=== PATIENT | female | born 1960 | race Caucasian/White ===

== ENCOUNTER → 2020-03-22 | Outpatient (CLI) | payer OTHER, BC ==
[~2020-03-22] VITALS: Ht 162.6 cm; Wt 47.6 kg
[~2020-03-22] MED LIST: ABILIFY 2 MG2 M1 PO; ALLERGY RELIEF180 MG PO; BACLOFEN20 MG PO; BAYER BACK & B1 EACH PO; CBD OIL; CELEBREX 200 M200 M1 PO; DERMACINRX5000 UNIT PO; DEXILANT60 MG PO; FLONASE 0.05%50 MCG NARES; HYDROCODON-ACE1 EAC8 PO; OXTELLAR XR150 MG PO; PRAMIPEXOLE DI0.5 MG PO; PROBIOTIC1 EAC7 PO; PROVIGIL 200 M200 MG PO; TOPAMAX100 MG PO; TRAZODONE HCL100 MG PO; TURMERIC500 M2 PO; VALACYCLOVIR1000 MG PO; VALIUM5 MG PO; VENLAFAXINE HCL75 M1 PO
[2020-03-22 14:14] VITALS: BP 137/90
--- NOTE | 2020-03-22 14:45 | NUR ---
Pain Clinic Assessment: 1. History of Osteoarthritis: YES DOESNT KNOW WHERE History of Rheumatoid Arthritis: Not Applicable 2. Height: 5 ft. 4 in. 162.6 cm. Weight: 105.0 lb. oz. 47.628 kg. Patient's BMI: 18.0 3. Vital Signs: BP: 137/90 Pulse: 81 Resp: 14 Temp: 02 Sat: 100 ECG Mon: 4. Pain Intensity: 7 5. Fall Risk: Dizziness: Y Needs help standing or walking: N Fallen in the last 3 months: Y Fall risk comments: 6. Patient on Blood Thinner: None 7. History of Hypertension: N 8. Opioid Therapy greater than 6 weeks: Y Opiate Contract Signed: 9. Risk Assessment Tool Provided: HIGH 9 10. Functional Assessment Tool: 53/70 11. Recreational Drug Use: Never Drug Type: Tobacco Use: Current Every Day Smoker Tobacco Type: Cigarettes Amount or Packs/day: 3/4 PACK How Many Years: 40 Alcohol Use: Yes Frequency: Weekly Quant: 5-7
--- NOTE | 2020-03-23 12:09 | HPC ---
[facility] [place] [address] PAIN MANAGEMENT CONSULTATION Name: CONSUELO MUNGUIA Room #: REG DAKOTAH Pena#: [id number] Admission: 03/22/20 Attend Phys: Gopal Cid DO Discharge: Date of : 60 Report #: [id number] THIS REPORT FOR: cc: FAM - No family physician/PCP FAM - No family physician/PCP Gopal Cid DO ~ DATE OF SERVICE: 03/22/2020 REFERRING PHYSICIAN: Dr. Byron Elliott CHIEF COMPLAINT: Low back pain, right lower extremity pain. HISTORY OF PRESENT ILLNESS: As you know, the patient is a very unfortunate 59-year-old female with longstanding history of back pain issues as well as cervical spine issues. She has undergone epidural injections under fluoroscopic guidance at a local pain service. Unfortunately, these epidural injections began to lose efficacy. The patient reports the past 2 epidural injections gave minimal benefit. She was advised that they would not recommend continuing epidural injections. Her typical relief of symptoms was up to 3 months at a time. Due to lack of improvement with those 2 epidural injections, the patient was referred on to Neurosurgery. The patient saw Dr. Byron Elliott for evaluation from a surgical standpoint. Imaging was provided at that visit, which showed minimal changes at the L4-L5 level. It was determined at that visit that the patient should undergo a L4-L5 disc block to determine if the symptoms she is experiencing are related to this level and that surgery would be performed or whether or not her pain is generated from another source and needs to be further evaluated. The patient was then subsequently referred to our clinic to L4-L5 disc block under fluoroscopic guidance. The patient indicates today pain is continuous, steady and constant. She describes the pain as burning, shooting, aching. She places current pain score at 7/10, daily average is 7-8/10, worst pain has been is 8/10. The patient states pain is exacerbated with "sitting too much," "carrying anything in front of her" and standing and walking. Pain is improved with lying down massage and pain medications. The patient has been referred to our service to discuss scheduling a L4-L5 disc block. PAST MEDICAL HISTORY: 1. Osteoarthritis. 2. Irritable bowel syndrome. 3. Depression. 4. Multiple sclerosis. 5. Ankylosing spondylitis. 6. History of seizure activity. 7. Mitral valve prolapse. 8. [place] [address] PAIN MANAGEMENT CONSULTATION Name: CONSUELO MUNGUIA Room #: REG [facility] Becky#: [id number] Admission: 03/22/20 Attend Phys: Gopal Cid DO Discharge: Date of : 60 Report #: [id number] 9. Anxiety disorder. 10. Seasonal allergies. PAST SURGICAL HISTORY: 1. Tonsillectomy. 2. Cholecystectomy with appendectomy. 3. Herniorrhaphy. 4. Ganglion cyst removal. 5. Tubal ligation. 6. Excision of breast lump. SOCIAL HISTORY: The patient is a current smoker, reporting 3/4 of a pack of tobacco per day. This has been consistent for over 40 years. She admits to 1 alcohol beverage per day. She is currently on disability. She has been on disability for 18 years. She is receiving disability income. She is not in litigation in regards to pain. She is accompanied by a family friend present in room today. REVIEW OF SYSTEMS: Positive for weight change, decrease in appetite, fatigue and weakness, history of optic neuritis with vision changes, hearing loss with tinnitus, frequent diarrhea, interspersed with constipation, abdominal pain, frequent urination, nocturia, varicose veins, lightheadedness and dizziness, numbness and tingling sensations, tremors, memory loss with confusion, nervousness, depression, insomnia, heat and cold intolerance. All other review of systems negative per 12-point review of systems other than those listed in history of present illness. Pain impact score 53 of 70 indicating severe interference of daily activities secondary to pain. ALLERGIES: No known drug allergies. CURRENT MEDICATIONS: Leonidas Back and Body 1 tab per day, probiotic 1 tab per day, CBD oil 3 times a day, turmeric extract 500 mg once a day, fexofenadine 180 mg once a day, fluticasone 1 spray each nostril per day, trazodone 150 mg p.o. at bedtime, Provigil 100 mg twice a day, hydrocodone/acetaminophen 7.5/325 one tab p.o. q. 6 hours p.r.n. for pain, diazepam 5 mg t.i.d. p.r.n. anxiety, pramipexole 0.5 mg p.o. at bedtime, oxcarbazepine 150 mg b.i.d., Abilify 2 mg once a day, Dexilant 60 mg once a day, valacyclovir 1000 mg once a day, celecoxib 200 mg once a day, baclofen 20 mg 4 times a day, Topamax 100 mg twice a day, venlafaxine 75 mg 3 tabs p.o. q.a.m. IMAGING: MRI of the lumbar spine obtained on 10/27/2019 shows L1-L2, L2-L3, L3-L4 unremarkable. L4-L5 shows small right paracentral disk protrusion with associated annular fissure. No central canal stenosis, mild bilateral lateral recess narrowing, mild right foraminal narrowing, no left neural foraminal [facility] [address] [place] [address] PAIN MANAGEMENT CONSULTATION Name: CONSUELO MUNGUIA Room #: REG [facility].#: [id number] Admission: 03/22/20 Attend Phys: Gopal Cid DO Discharge: Date of : 60 Report #: [id number] narrowing. Findings are similar to prior MRI dated 06/11/2019. Disk protrusion is actually decreased in size from 09/26/2017. L5-S1 is unremarkable. PQRS: The patient has known arthritic changes of the cervical spine, shoulders, lumbar spine, hips and knees. No rheumatoid arthritis. She is placing pain intensity is 7/10. She is not a fall risk, but has had a fall in last 3 months, apparently tripped over objects at home. This has been rectified and the area has been cleared. She is not on blood thinners nor she is treated for hypertension. She is on chronic opioids and has an extremely high opioid addiction potential based on our assessment tool. She is scoring 9.5 out of 10. Pain impact score 53/70, severe interference of daily activities secondary to pain. PHYSICAL EXAMINATION: VITAL SIGNS: Blood pressure 137/90, pulse 81, respiratory rate 14 and unlabored. The patient is 100% on room air. Height 5 feet 4 inches tall, weight 105 pounds, BMI calculated 18. GENERAL: Well-developed, thin, 59-year-old female, appears older than stated age. She is placing current pain score at around 7/10. HEENT: Normocephalic, atraumatic. Pupils are round and responsive. Extraocular muscles are intact. The patient is wearing a mask in compliance with COVID-19 regulations. LUNGS: Appear clear. No wheeze, rhonchi, no rales. CARDIOVASCULAR: Regular. No appreciable gallop, no rub. ABDOMEN: Soft, nontender. EXTREMITIES: Show no clubbing, no appreciable cyanosis or edema. MUSCULOSKELETAL: Motor strength is 5/5 in the upper extremities, 5/5 in the lower extremities except for the extensor hallucis longus bilaterally, which presents is mildly reduced to approximately 4.5 over 5. She is intact to light touch from L1 through S2 dermatomes. Deep tendon reflexes are 2+/4 bilaterally at the Achilles. There are absent patellar reflexes. Muscle bulk and tone is symmetrical in comparing lower extremities. Seated straight leg raising negative. Supine straight leg raising is negative. Татьяна's test is negative. Modified Gaenslen's positive for axial low back pain. Ankle clonus negative. Babinski is negative. The patient is able to toe walk and heel walk without complications. ASSESSMENT: 1. Chronic low back pain. 2. Mild displacement of the anterior vertebral lumbar disk. 3. Mild neural foraminal stenosis. 4. Mild lateral recess stenosis. 5. Chronic intractable pain. PLAN: 1. The patient has been referred to our service by her neurosurgeon, [place] [address] PAIN MANAGEMENT CONSULTATION Name: CONSUELO MUNGUIA Room #: REG DAKOTAH Pena#: [id number] Admission: 03/22/20 Attend Phys: Gopal Cid DO Discharge: Date of : 60 Report #: [id number] Earl to be evaluated to undergo an L4-L5 disc block to help with diagnostic evaluation. The patient has mild changes at the L4-L5 level with the remainder of the lumbar spine is normal. There is concern that her symptoms may be related to this L4-L5 disk and that the presentation on imaging is not sufficient to provide the information necessary to determine if surgical options would be beneficial. We have been requested by the neurosurgeon to perform a L4-L5 disc block to determine if her symptoms would improve with this type of procedure. This would indicate that if she does see improvement that surgery at the level should improve overall pain. The patient was sent to discuss this block today. 2. The patient and I did discuss the disc block today. At present, her pain is "fairly well controlled." She states she is having pain from other areas including her cervical dystonia and would not be able to tell the difference between her typical back pain and the symptoms she is experiencing at present. We have agreed to see the patient back tomorrow after she has had a chance to go about the activities that exacerbate her chronic back pain including climbing stairs and carrying objects. The patient will perform all these exercises prior to coming to our clinic so that her typical lumbar spine pain will be present. This will help determine whether or not the disc block is going to be successful. The patient is agreeable with plan. We have tentatively set the appointment for tomorrow at approximately 1 o'clock. She will be participating in all these activities that exacerbate her symptoms, so that when the block is completed if her symptoms are improved, then she can determine whether or not it will be beneficial move forward with surgery. 3. No medication changes are offered at today's visit. The patient will continue current medical therapy as prior prescribed. 4. We plan to see the patient back in followup visit tomorrow to undergo an L4-L5 disc block under fluoroscopic guidance. 5. We wish to thank Dr. Byron Elliott for the opportunity to see this patient in consultation. We will keep you apprised of her response to treatment as we address this L4-L5 disk level with the requested disc block. Again, we wish to thank you for the opportunity to see this patient in consultation. <ELECTRONICALLY SIGNED> By: Gopal Cid DO 03/23/20 1209 [id number] Gopal Cid DO /nt
== END ==
LOC: PAIN 06:58
PROVIDERS: ATTEND Anesthesiology Pain Medicine
DX: G89.29 Other chronic pain (principal); M51.26 Other intervertebral disc displacement, lumbar region; M48.00 Spinal stenosis, site unspecified; M19.90 Unspecified osteoarthritis, unspecified site; K58.9 Irritable bowel syndrome, unspecified; G35 Multiple sclerosis; Z78.0 Asymptomatic menopausal state; Z68.1 Body mass index [BMI] 19.9 or less, adult; Z90.49 Acquired absence of other specified parts of digestive tract; Z98.51 Tubal ligation status; Z79.891 Long term (current) use of opiate analgesic; Z79.899 Other long term (current) drug therapy

== ENCOUNTER → 2020-03-23 | Outpatient (CLI) | payer OTHER, BC ==
[~2020-03-23] VITALS: Ht 162.6 cm; Wt 49.2 kg
[2020-03-23 12:56] VITALS: BP 129/79
--- NOTE | 2020-03-23 13:04 | NUR ---
Pain Clinic Assessment: 1. History of Osteoarthritis: YES DOESNT KNOW WHERE History of Rheumatoid Arthritis: Not Applicable 2. Height: 5 ft. 4 in. 162.6 cm. Weight: 108.4 lb. oz. 49.170 kg. Patient's BMI: 18.6 3. Vital Signs: BP: 129/79 Pulse: 90 Resp: 16 Temp: 02 Sat: 100 ECG Mon: 4. Pain Intensity: 5 5. Fall Risk: Dizziness: N Needs help standing or walking: N Fallen in the last 3 months: N Fall risk comments: 6. Patient on Blood Thinner: None 7. History of Hypertension: N 8. Opioid Therapy greater than 6 weeks: Y Opiate Contract Signed: 9. Risk Assessment Tool Provided: HIGH 9 10. Functional Assessment Tool: 53/70 11. Recreational Drug Use: Never Drug Type: Tobacco Use: Current Every Day Smoker Tobacco Type: Amount or Packs/day: 3/4 OF PACK How Many Years: Alcohol Use: Yes Frequency: Special Occasions Quant: 2
--- NOTE | 2020-03-29 08:02 | HPC ---
[facility] [place] [address] PAIN MANAGEMENT CONSULTATION Name: CONSUELO MUNGUIA Room #: REG DAKOTAH Pena#: [id number] Admission: 03/23/20 Attend Phys: Gopal Cid DO Discharge: Date of : 60 Report #: [id number] THIS REPORT FOR: cc: FAM - No family physician/PCP FAM - No family physician/PCP Gopal Cid DO ~ DATE OF SERVICE: 03/23/2020 CHIEF COMPLAINT: Low back pain, right lower extremity pain. HISTORY OF PRESENT ILLNESS: As you know, the patient is a very unfortunate 59-year-old female with longstanding history of low back pain and cervical issues. She has been referred to our service to undergo a L4-L5 discoblock in hopes of determining if her symptoms are related to the findings at the L4-L5 level. The patient has been referred by her neurosurgeon to undergo this procedure. She typically follows with Dr. Baltazar Urias, her pain management physician, but according to the patient, Dr. Urias does not provide discoblocks and she was subsequently referred to our clinic. We saw the patient yesterday, obtain authorizations to have the patient undergo the procedure, but also have the patient attempt to exacerbate her symptoms as much as possible prior to coming into the clinic as she was unable to determine if she could tell a difference between her baseline pain and a new pain that she has been experiencing. She returns today having exacerbated her typical low back pain with activities in preparation for L4-L5 discoblock under fluoroscopic guidance. The patient reports pain today at a level of 5/10. ALLERGIES: No known drug allergies. CURRENT MEDICATIONS: See chart. SOCIAL HISTORY: Unchanged from yesterday's evaluation. She is a current smoker, reporting 3/4 of pack tobacco per day consistent for over 40 years. Admits to 1 alcohol beverage per day. She is on disability accompanied with a friend who is present in room today. IMAGING: There is no new imaging available. PQRS: The patient has known arthritic changes of the cervical spine, bilateral shoulders, bilateral lumbar spine, hips and knees. No rheumatoid arthritis. She is placing current pain score today 5/10, not a fall risk, has not had a fall in last 3 months. She is not on blood thinners, nor is she treated for hypertension. She is on chronic opioids with extremely high opioid addiction potential based on our assessment tool. Pain impact remains at 53 of 70. PHYSICAL EXAMINATION: VITAL SIGNS: Blood pressure 129/79, pulse 90, respiratory rate [address] [address] PAIN MANAGEMENT CONSULTATION Name: CONSUELO MUNGUIA Room #: REG [facility].#: [id number] Admission: 03/23/20 Attend Phys: Gopal Cid DO Discharge: Date of : 60 Report #: [id number] unlabored. The patient is 100% on room air. Height 5 feet 4 inches tall, weight 108.4 pounds, BMI calculated 18.6. GENERAL: Well-developed, thin, 59-year-old female, appears older than stated age, placing pain today 5/10. HEENT: Normocephalic, atraumatic. Pupils are responsive. EXTREMITIES: Show no clubbing, no cyanosis, and no edema. MUSCULOSKELETAL: Motor strength remains symmetrical again today 5/5 except for the extensor hallucis longus bilaterally. She is intact to light touch from L1 through S2 dermatomes. Seated straight leg raising negative. Supine straight leg raising negative. Татьяна's test is negative. ASSESSMENT: 1. Chronic low back pain. 2. Mild displacement of lumbar intervertebral disk. 3. Mild neural foraminal stenosis. 4. Mild lateral recess stenosis. 5. Chronic intractable pain. PLAN: 1. The patient returns today in followup visit in preparation to undergo an L4-L5 discoblock per the request of her neurosurgeon. The patient has spent the morning attempting to exacerbate her chronic low back pain in preparation for today's procedure. The patient returns with pain level of 5/10. She has been advised of the risks and the benefits of a L4-L5 discoblock. These risks in Blue include but are not necessarily limited to bleeding, bruising, infection, worsening pain, no relief of pain, also risk of temporary or permanent muscle weakness, temporary or permanent nerve damage, possible paralysis and . The patient states understood and wished to proceed. 2. No medication changes made at today's visit. The patient will continue current medical therapy as prior prescribed. 3. We will be returning the patient's care to her neurosurgeon for further evaluation. I am pleased to advise the patient and her referring surgeon. We had no difficulty obtaining the discoblock. I have sent the patient with imaging from that discoblock for your review. The patient tolerated the procedure well. She did have pain provocation concordant with her current symptoms with the injection of our medications. I did not see any extravasation of dye during the procedure. Imaging was sent with the patient for your evaluation. We wish to thank you for the opportunity to see the patient in consultation. We will be returning her care to your capable services. DESCRIPTION OF PROCEDURE: L4-L5 discoblock under fluoroscopic guidance. After obtaining written consent, the patient was taken back to fluoroscopy suite, placed in prone position with pillow under abdomen to decrease lumbar lordosis. Skin overlying the lumbosacral area was then prepped and draped in aseptic fashion. A 27-gauge 1-1/4 inch needle was then used to anesthetize skin [address] [address] PAIN MANAGEMENT CONSULTATION Name: EZRACONSUELO Room #: REG DAKOTAH [facility].#: [id number] Admission: 03/23/20 Attend Phys: Gopal Cid DO Discharge: Date of : 60 Report #: [id number] and subcutaneous tissue overlying the target site of injection. A 22-gauge 5-inch Chiba needle was advanced under fluoroscopic guidance towards the L4-L5 disk. This was done in small increments to confirm needle position as we approached the L4-L5 disk. Needle passed a superior and lateral to the superior articular process of L5 entering the disk laterally and was then advanced medially without difficulty. Once into the disk, aspiration was noted to be negative for heme, 1 mL of Omnipaque was injected demonstrating an excellent discogram. After negative aspiration for heme, 3 mL of bupivacaine 0.5% was injected slowly. There was pain provocation with this injection concordant with the patient's typical pain. The injection went without complications. The needle was retracted and flushed with 1 mL of 1% lidocaine. Needle removed and a sterile bandage was placed over injection site. The patient was able to move all 4 extremities purposefully after procedure. The patient tolerated procedure well, carefully escorted to recovery room in stable condition. No apparent complications. After meeting discharge criteria, the patient discharged home. <ELECTRONICALLY SIGNED> By: Gopal Cid DO 03/29/20 0802 [id number] 1743 Gopal Cid DO /nt
== END | disposition home or self-care (01) ==
LOC: PAIN 06:56
PROVIDERS: ATTEND Anesthesiology Pain Medicine
DX: M51.16 Intervertebral disc disorders with radiculopathy, lumbar region (principal); M48.061 Spinal stenosis, lumbar region without neurogenic claudication; G89.29 Other chronic pain; M19.90 Unspecified osteoarthritis, unspecified site; F17.210 Nicotine dependence, cigarettes, uncomplicated; Z98.890 Other specified postprocedural states; Z79.899 Other long term (current) drug therapy